=== PATIENT | male | born 1980 | race Caucasian/White ===

== ENCOUNTER 2022-09-10 16:57 | Emergency (ER) | payer SELFPAY ==
[~2022-09-10] VITALS: Ht 185.4 cm; Wt 119.0 kg
[2022-09-10 17:08] VITALS: BP 119/77
[2022-09-10 19:54] LABS: BASOPHILS % 0.9 % (0.0-2.0); EOSINOPHILS % 4.4 % (0.0-5.0); HEMOGLOBIN. 14.7 g/dL (14.0-18.0); LYMPHOCYTES % 26.3 % (20.0-50.0); MEAN CORPUSCULAR VOLUME 79.5 fL (80.0-94.0); MEAN PLATELET VOLUME 8.1 fl (7.4-10.4); MONOCYTES % 8.5 % (2.0-8.0); NEUTROPHILS % 59.9 % (40.0-76.0); PLATELET 264 x1000/uL (130-400); RED BLOOD CELL COUNT 5.66 mill/uL (4.7-6.1)
[2022-09-10 20:05] LABS: CHLORIDE 106 mEq/L (98-107)
== END 2022-09-11 00:55 | disposition left against medical advice (07) ==
LOC: ER 17:10
DX: Z53.21 Procedure and treatment not carried out due to patient leaving prior to being seen by health care provider (principal)
CPT/HCPCS: 36415; 71045; 80053; 83880; 84484; 85025; 93005